=== PATIENT | female | born 1980 | race Two or more races ===

== ENCOUNTER 2017-05-09 09:22 | Emergency (ER) | payer OTHER ==
[2017-05-09 09:30] VITALS: TEMP 98.3; BMI 34.4
[2017-05-09] MEDS ORDERED: ACETAMINOPHEN 1000 MG/100 ML VIAL (NON FORMULARY) IVPB ONE (10:20)
[2017-05-09] MEDS ORDERED: ACETAMINOPHEN INJECTION 100 ML IVPB ONE (10:26)
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
[2017-05-09 10:52] LABS: BASOPHIL 0.9 % (0-2.0); EOSINOPHIL 2.9 % (0-4.5); MCH 29.9 pg (25.7-33.7); MCHC 33.5 g/dl (32.0-36.0); MEAN CELL VOLUME 89.1 fl (80-96); MEAN PLT VOLUME 8.6 fl (7.5-11.1); PLATELET COUNT 271 K/MM3 (134-434); RDW 13.5 % (11.6-15.6); WHITE BLOOD COUNT 6.6 K/mm3 (4.0-10.0)
[2017-05-09 11:03] LABS: ALBUMIN 3.8 g/dl (3.4-5.0); ANION GAP 5 (8-16); CALCIUM 8.9 mg/dL (8.5-10.1); CO2 28 mmol/L (21-32); GLUCOSE,RANDOM 90 mg/dL (74-106)
[2017-05-09 11:10] LABS: ALK PHOS 69 U/L (45-117); BILIRUBIN,TOTAL 0.2 mg/dL (0.2-1.0); CPK 84 IU/L (26-192); CREATININE 0.7 mg/dL (0.55-1.02); SGOT/AST 17 U/L (15-37); SGPT/ALT 23 U/L (12-78); TOT PROT 7.9 g/dl (6.4-8.2); TROPONIN I < 0.02 ng/ml (0.00-0.05)
[2017-05-09 11:22] LABS: INR 1.09 (0.82-1.09)
[2017-05-09] MEDS ORDERED: traMADol HCL 50 MG TABLET PO ONE (12:46)
[2017-05-09] MEDS ORDERED: traMADol HCL 50 MG TABLET ONE (13:43)
[2017-05-09] MEDS ORDERED: LIDOCAINE 5% TOPICAL PATCH TP ONE (14:50)
[2017-05-09 16:59] VITALS: BP 132/78; PULSE 89
[2017-05-09] MEDS ORDERED: LIDOCAINE PATCH REMOVAL MC ONE (22:00)
--- NOTE | 2017-05-14 13:59 | EKG ---
Test Reason : Blood Pressure : / mmHG Vent. Rate : 115 BPM Atrial Rate : 115 BPM P-R Int : 116 ms QRS Dur : 090 ms QT Int : 318 ms P-R-T Axes : 056 006 021 degrees QTc Int : 439 ms SINUS TACHYCARDIA MINIMAL VOLTAGE CRITERIA FOR LVH, MAY BE NORMAL VARIANT BORDERLINE ECG NO PREVIOUS ECGS AVAILABLE REPEAT EKG IF CLINICALLY INDICATED Confirmed by MAVIS MÉNDEZ MD ([id number]) on 05/14/2017 1:58:39 PM Referred By: Confirmed By:MAVIS MÉNDEZ MD
== END 2017-05-09 16:59 | disposition home or self-care (01) ==
LOC: JER 09:22
PROC: 3E033NZ Introduction of Analgesics, Hypnotics, Sedatives into Peripheral Vein, Percutaneous Approach (ICD-10-PCS; principal; 2017-05-09)
DX: M25.512 Pain in left shoulder (principal); Z88.0 Allergy status to penicillin
CPT/HCPCS: 36415; 71260-TC; 73030-TC-LT; 80053; 84484; 84703; 85025; 85379; 85610; 93005; 93010; 99284-25